=== PATIENT | male | born 1970 | race Caucasian/White ===

== ENCOUNTER 2017-02-17 09:48 | Emergency (ER) | payer OTHER ==
[~2017-02-17] VITALS: Ht 167.6 cm; Wt 96.0 kg
[2017-02-17 09:53] VITALS: Ht 167.6 cm; Wt 96.0 kg
[2017-02-17] MEDS ORDERED: KETOROLAC 30 MG INJ IV STA (10:33)
[2017-02-17] MEDS ORDERED: ONDANSETRON 4 MG INJ IV STA (10:33)
[2017-02-17 11:23] LABS: ADD SCAN DIFF NO
[2017-02-17 11:26] LABS: BASOPHILS % 0.6 % (0.0-2.0); EOSINOPHILS # 0.2 10^3/ul (0.0-0.5); EOSINOPHILS % 2.8 % (0.0-7.0); HEMATOCRIT 44.6 % (42.0-52.0); HEMOGLOBIN 14.8 g/dl (14.0-18.0); LYMPHOCYTES # 1.8 10^3/ul (0.8-2.9); LYMPHOCYTES % 26.3 % (15.0-51.0); MEAN CORPUSCULAR HEMOGLOBIN 31.6 pg (29.0-33.0); MEAN CORPUSCULAR HGB CONC 33.2 g/dl (32.0-37.0); MEAN CORPUSCULAR VOLUME 95.3 fl (82.0-101.0); MEAN PLATELET VOLUME 10.3 fl (7.4-10.4); MONOCYTE # 0.5 10^3/ul (0.3-0.9); MONOCYTES % 7.5 % (0.0-11.0); NEUTROPHIL # 4.2 10^3/ul (1.6-7.5); NEUTROPHILS % 62.4 % (39.0-77.0); PLATELET COUNT 306 10^3/UL (140-415); RED BLOOD COUNT 4.68 10^6/ul (4.70-6.10); RED CELL DISTRIBUTION WIDTH 12.8 % (11.5-14.5); WHITE BLOOD COUNT 6.7 10^3/ul (4.8-10.8)
[2017-02-17 11:43] LABS: ALBUMIN 4.6 g/dl (3.3-4.9); ALBUMIN/GLOBULIN RATIO 1.76; BILIRUBIN,INDIRECT 0.2 mg/dl (0-1.1); BILIRUBIN,TOTAL 0.2 mg/dl (0.2-1.3); CREATININE 0.8 mg/dl (0.61-1.24); POTASSIUM 3.9 mmol/L (3.5-5.1); TOTAL PROTEIN 7.2 g/dl (6.1-8.1)
[2017-02-17 11:46] LABS: ADD UMIC NO; UR BILIRUBIN (Dip) NEGATIVE (NEGATIVE); UR BLOOD (Dip) NEGATIVE (NEGATIVE); UR CLARITY CLEAR (CLEAR); UR COLOR LT. YELLOW (YELLOW); UR GLUCOSE (Dip) NEGATIVE (NEGATIVE); UR KETONES (Dip) NEGATIVE (NEGATIVE); UR LEUKOCYTE ESTERASE (Dip) NEGATIVE (NEGATIVE); UR NITRITE (Dip) NEGATIVE (NEGATIVE); UR TOTAL PROTEIN (Dip) NEGATIVE (NEGATIVE); UR UROBILINOGEN (Dip) 0.2 E.U./dL (0.1-1.0)
--- NOTE | 2017-02-17 13:25 | RADRPT ---
PROCEDURE: CT Abdomen and Pelvis without contrast. CLINICAL INDICATION: Abdominal pain. Left flank pain. Nausea and vomiting. TECHNIQUE: CT scan of the abdomen and pelvis without contrast was performed on a multi-slice CT [facility] without intravenous contrast. Coronal and sagittal reformatted images were obtained from the axial source images. Images were reviewed on a high-resolution PACS workstation. One or more of the following does reduction techniques were used: Automated exposure control; adjustment of the mA an d/or kV according to patient size; use of the aorta of reconstruction technique. The total exam CTD I equals 21.66 mGy and the total exam DLP equals 1363.3 mGy-cm. COMPARISON: None available FINDINGS: There is focal atelectasis or infiltrate in posteromedial right middle lobe. The lung bases are othe rwise clear. Heart size is normal, and there is no evidence of pericardial thickening or effusion. There is diffuse decreased attenuation of the hepatic parenchyma consistent with fatty infiltration. The liver, spleen, and pancreas are otherwise normal given the limitations of a noncontrast CT exa mination. The gallbladder is normal. The adrenal glands are normal. The kidneys without renal calculus or hydronephrosis. The aorta is of normal caliber. There is no retroperitoneal lymph node enlargment. There is no evidence of large or small bowel obstruction. There are scattered colonic diverticula. There is focal thickening of the wall of a single diverticulum with adjacent inflammatory change i n the region of the proximal descending colon consistent with acute diverticulitis. There is no lien dence of adjacent abscess formation or perforation. No other foci of inflammatory change are seen i n the abdomen or pelvis. A normal appendix is identified. There is a tiny periumbilical hernia cont aining only fat. The prostate appears mildly enlarged. No enlarged pelvic sidewall lymph nodes are seen. The bladder is within normal limits. No free fluid is identified. There is a small left inguinal hernia conta ining only fat. The inguinal regions are otherwise unremarkable The bones are intact. IMPRESSION: 1. Diverticulitis of the proximal descending colon without evidence of perforation or abscess forma tion. 2. Small area of focal atelectasis or infiltrate in the posteromedial right middle lobe. 3. Fatty infiltration of the liver. 4. Tiny periumbilical and small left inguinal hernias containing only fat. RPTAT: KK .Andrew Tomas MD, MD Date Time Electronically viewed and signed by .Andrew Tomas MD, MD on 02/17/2017 13:25 .B/
[2017-02-17] MEDS ORDERED: CIPROFLOXACIN 400MG/D5W 200 ML IVPB ONE (13:30)
[2017-02-17] MEDS ORDERED: metroNIDAZOLE 500 MG TAB PO ONE (13:30)
[2017-02-17] MEDS ORDERED: traMADol 50 MG TAB PO ONE (14:00)
[2017-02-17] MEDS ORDERED: CIPR500T4 PO (14:29)
[2017-02-17] MEDS ORDERED: HYDR-906 PO (14:29)
[2017-02-17] MEDS ORDERED: DOCU-144 PO (14:29)
[2017-02-17] MEDS ORDERED: METR500T PO (14:29)
--- NOTE | 2017-02-17 14:32 | ERD ---
ER Documentation Chief Complaint Date/Time DATE: 02/17/17 TIME: 14:30 Chief Complaint LEFT FLANK PAIN HPI This 46-year-old male complains of left flank pain worsening over the last 3 days. He has had a few episodes of vomiting, nonbilious nonbloody but no fevers. Denies any diarrhea or blood. He denies any urinary complaints. He has history of sciatica but this is higher up in his usual low back pain. ROS All systems reviewed and are negative except as per history of present illness. Medications Home Meds Active Scripts Hydrocodone/Acetaminophen ([place] 5-325 Tablet) 1 Each Tablet, 1 TAB PO Q6H Y for PAIN, #14 TAB Prov:SHARON JOHNS MD 02/17/17 Metronidazole* (Flagyl*) 500 Mg Tablet, 500 MG PO TID for 10 Days, TAB Prov:SHARON JOHNS MD 02/17/17 Ciprofloxacin Hcl* (Ciprofloxacin Hcl*) 500 Mg Tablet, 500 MG PO BID for 10 Days , TAB Prov:SHARON JOHNS MD 02/17/17 Docusate Sodium* (Colace*) 100 Mg Capsule, 100 MG PO TID, #30 CAP Prov:SHARON JOHNS MD 02/17/17 Allergies Allergies: Coded Allergies: No Known Allergy (Unverified , 02/17/17) PMhx/Soc History of Surgery: Yes (TONSCILLECTOMY) Anesthesia Reaction: No Hx Neurological Disorder: No Hx Respiratory Disorders: No Hx Cardiac Disorders: No Hx Psychiatric Problems: No Hx Miscellaneous Medical Probl: Yes (GRAVES DZ, P RADIATION [place] ) Hx Alcohol Use: Yes (1-2X/ WK) Hx Substance Use: No Hx Tobacco Use: No Smoking Status: Never smoker Physical Exam Vitals Vital Signs Date Time Temp Pulse Resp B/P Pulse Ox O2 Delivery O2 Flow Rate FiO2 02/17/17 09:53 98.5 89 84 176/98 97 Physical Exam Const: [] Alert, [id number]. Uncomfortable due to pain. Head: Atraumatic Eyes: Normal Conjunctiva ENT: Normal External Ears, Nose and Mouth. Neck: Full range of motion..~ No meningismus. Resp: Clear to auscultation bilaterally Cardio: Regular rate and rhythm, no murmurs Abd: Soft, minimal tenderness in the left mid abdomen left lower abdomen., non distended. Normal bowel sounds Skin: No petechiae or rashes Back: No midline tenderness. There is some left sided tenderness approximately L2-L3 paraspinous area or flank area. Ext: No cyanosis, or edema Neur: Awake and alert Psych: Normal Mood and Affect Result Diagram: 02/17/17 1050 02/17/17 1050 Results 24 hrs Laboratory Tests Test 02/17/17 10:41 02/17/17 10:50 Urine Color LT. YELLOW Urine Clarity CLEAR Urine pH 6.0 Urine Specific Ward 1.020 Urine Ketones NEGATIVE Urine Nitrite NEGATIVE Urine Bilirubin NEGATIVE Urine Urobilinogen 0.2 E.U./dL Urine Leukocyte Esterase NEGATIVE Urine Hemoglobin NEGATIVE Urine Glucose NEGATIVE% Urine Total Protein NEGATIVE White Blood Count 6.710^3/ul Red Blood Count 4.6810^6/ul Hemoglobin 14.8g/dl Hematocrit 44.6% Mean Corpuscular Volume 95.3fl Mean Corpuscular Hemoglobin 31.6pg Mean Corpuscular Hemoglobin Concent 33.2g/dl Red Cell Distribution Width 12.8% Platelet Count 01089^3/UL Mean Platelet Volume 10.3fl Neutrophils % 62.4% Lymphocytes % 26.3% Monocytes % 7.5% Eosinophils % 2.8% Basophils % 0.6% Nucleated Red Blood Cells % 0.0/100WBC Neutrophils # 4.210^3/ul Lymphocytes # 1.810^3/ul Monocytes # 0.510^3/ul Eosinophils # 0.210^3/ul Basophils # 0.010^3/ul Nucleated Red Blood Cells # 0.010^3/ul Sodium Level 141mmol/L Potassium Level 3.9mmol/L Chloride Level 106mmol/L Carbon Dioxide Level 25mmol/L Anion Gap 14 Blood Urea Nitrogen 9mg/dl Creatinine 0.80mg/dl Glucose Level 96mg/dl Calcium Level 10.0mg/dl Total Bilirubin 0.2mg/dl Direct Bilirubin 0.00mg/dl Indirect Bilirubin 0.2mg/dl Aspartate Amino Transf (AST/SGOT) 71IU/L Alanine Aminotransferase (ALT/SGPT) 112IU/L Alkaline Phosphatase 84IU/L Total Protein 7.2g/dl Albumin 4.6g/dl Globulin 2.60g/dl Albumin/Globulin Ratio 1.76 Lipase 124U/L Current Medications Medications (Trade) Dose Ordered Sig/Milly Route PRN Reason Start Time Stop Time Status Last Admin Dose Admin Ondansetron HCl (Zofran Inj) 4 mg ONCE STAT IV 02/17/17 10:33 02/17/17 10:34 DC 02/17/17 10:54 Ketorolac Tromethamine 30 mg 30 mg ONCE STAT IV 02/17/17 10:33 02/17/17 10:34 DC 02/17/17 10:55 Ciprofloxacin/ Dextrose (Cipro Ivpb) 200 ml @ 200 mls/hr ONCE ONCE IVPB 02/17/17 13:30 02/17/17 14:29 DC 02/17/17 13:47 Metronidazole (Flagyl) 500 mg ONCE ONCE PO 02/17/17 13:30 02/17/17 13:31 DC 02/17/17 14:02 Tramadol HCl (Ultram) 50 mg ONCE ONCE PO 02/17/17 14:00 02/17/17 14:01 DC 02/17/17 13:47 Procedures/MDM I views obtained. Patient was given Toradol 30 g IV, and CBC and CMP and lipase are normal. Urine is negative for leukocytes, hemoglobin, glucose or blood. CT abdomen pelvis noncontrast shows diverticulitis in the left descending colon the area of pain. There is no other acute findings noted. Possible slight right lower lobe atelectasis versus infiltrate. Patient was given Cipro 400 mg IV and Flagyl 500 mg by mouth as well as tramadol 50 mg by mouth. Patient presents with left flank pain for the last few days with signs of diverticulitis without evidence of perforation or abscess. He was treated with Cipro, signs and symptoms do not suggest additional causes of abdominal pain such as appendicitis, obstruction. Flagyl, [place] and Colace at home instructions to follow with primary doctor and recommended gastroenterology for further evaluation treatment. He should return for blood, fevers, vomiting, worsening pain, new worsening symptoms with primary care doctor this week. Departure Diagnosis: Primary Impression: Diverticulitis Diverticulitis site: large intestine Diverticulitis bleeding: without bleeding Diverticulitis complication: without perforation or abscess Qualified Code: K57.32 - Diverticulitis of large intestine without perforation or abscess without bleeding Condition: Stable Patient Instructions: Diverticulitis Additional Instructions: CT scan shows diverticulitis. See primary doctor for follow-up recommend gastroenterology for colonoscopy. Return for fevers, vomiting, blood, worsening pain, new worsening symptoms. SHARON JOHNS MD Feb 17, 2017 14:32
[2017-02-17] MEDS ORDERED: ONDA8TAB14 PO (14:33)
[2017-02-17 14:54] VITALS: BP 142/67; PULSE 78; RESP 18; TEMP 98.2
== END 2017-02-17 14:56 | disposition home or self-care (01) ==
LOC: FTE 09:48
DX: K57.32 Diverticulitis of large intestine without perforation or abscess without bleeding (principal); R11.10 Vomiting, unspecified
CPT/HCPCS: 36415; 74176; 80053; 81003; 83690; 85025; 96374; 96375; 99285; J0744; J1885; J2405